=== PATIENT | female | born 1960 | race Caucasian/White ===

== ENCOUNTER → 2023-06-25 10:01 | Outpatient (REF) | payer BC, SELFPAY | LOC: HWWDC 10:01 | PROVIDERS: ATTENDING PHYSICIAN Obstetrics & Gynecology Gynecology; FAMILY PHYSICIAN Family Medicine | DX: Z12.31 Encounter for screening mammogram for malignant neoplasm of breast (principal) | CPT/HCPCS: 77063; 77067 ==

== ENCOUNTER → 2023-12-16 14:11 | Outpatient (REF) | payer BC, SELFPAY | LOC: HWRAD 14:11 | PROVIDERS: ATTENDING PHYSICIAN Student in an Organized Health Care Education/Training Program | DX: R06.02 Shortness of breath (principal) | CPT/HCPCS: 71275; Q9967 ==

== ENCOUNTER → 2024-07-14 09:09 | Outpatient (REF) | payer BC, SELFPAY | LOC: HWWDC 09:09 | PROVIDERS: ATTENDING PHYSICIAN Obstetrics & Gynecology Gynecology; FAMILY PHYSICIAN Family Medicine | DX: Z78.0 Asymptomatic menopausal state (principal); Z12.31 Encounter for screening mammogram for malignant neoplasm of breast | CPT/HCPCS: 77063; 77067; 77080 ==

== ENCOUNTER 2024-12-09 10:06 | Emergency (ER) | payer BC, SELFPAY ==
[2024-12-09 10:11] VITALS: BP 149/97
[2024-12-09 10:36] VITALS: BP 131/107
--- NOTE | 2024-12-09 10:42 | ED.GENMED ---
History of Present Illness
General
Chief Complaint: Chest Pain
Time Seen by Provider: 12/09/24 10:34
History of Present Illness
History of Present Illness:
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 No obvious
modifying factors, denies any pleuritic or exertional component to this pain. States it feels like indigestion but taking antacids has not helped. No history of similar pain. Denies any fever, chills, sweats, shortness of breath, nausea,
vomiting. Non-smoker. Does have a primary family history of coronary disease, mother in her 50s to 60s with HI
Past History
Past History
ED Past Medical History: Other (arthritis)
ED Past Surgical History: None
Patient has exhibited threatening behavior?: No
PSI?: No
Social History
Tobacco: Non-smoker
Alcohol: None
Drug: None
Personal:
Living: with family
Review of Systems
Review of Systems
Allergies reviewed?: Yes
All Other Systems: ROS reviewed and negative except as documented in HPI and ROS
Phy Exam
Physical Exam
Physical Exam:
GEN: Well appearing, NAD, WDWN
HEENT: Oral mucosa moist, no scleral icterus
Cardiac: Regular rate and rhythm, no murmurs
Lung: No respiratory distress, no tachypnea, lungs clear to auscultation bilaterally
MSK: No gross deformity or injuries
Skin: Good color, no pallor or jaundice, no rashes
Neuro: AO x3, moves all extremities freely
Psych: Calm, cooperative
Scores
Heart Score for Chest Pain Patients
STEMI patient?: No
History: Slightly or Non-Suspicious
ECG: Normal
Age: >45 - <65 years
Risk Factors: 1 or 2 Risk Factors
Troponin: </= Normal Limit
Heart Score for Chest Pain Patients: 2
Heart Score Risk: 2.5% MACE over next 6 weeks
Course
Orders/Labs/Results
Orders:
Orders
12/09/24 10:07
Electrocardiogram (*1) Urgent
Reason for Study: Chest Pain
EKG- Treatment ONCE
12/09/24 10:42
CR Chest - 2 Views Urgent
Comment:
Reason For Exam: chest pain
12/09/24 11:00
Complete Blood Count/No Diff Urgent
Comprehensive Metabolic Panel Urgent
Troponin I Urgent
12/09/24 11:46
D-Dimer Urgent
12/09/24 11:00
12/09/24 11:00
Vital Signs
Initial and Last Documented VS:
Initial Vital Signs
Temp Pulse Resp BP Pulse Ox
98.4 F 69 16 149/97 98
12/09/24 10:11 12/09/24 10:11 12/09/24 10:11 12/09/24 10:11 12/09/24 10:11
Last Documented Vital Signs
Temp Pulse Resp BP Pulse Ox
98.4 F 68 19 124/91 96
12/09/24 10:11 12/09/24 13:05 12/09/24 13:05 12/09/24 13:04 12/09/24 12:21
MDM/Problems Addressed
MDM/Problems Addressed:
Workup was reassuring, EKG nonischemic. Troponin and D-dimer negative. Will refer to cardiology through the chest pain hotline for follow-up given her moderate to low risk for CAD
Comment
Comment:
EKG independently interpreted by me shows a normal sinus rhythm with no ST changes concerning for ischemia
*Pulse Oximetry
SaO2: 98
Oxygen Mode of Delivery: Room air
Patient hypoxic: no
*Critical Care Note
Total Time (30-74mins, 75-104mins- exclusive of procedures): Not Applicable
ED Attending Note
-
Portions of this chart may have been created with voice recognition software.� Occasional wrong word or��sound alike� substitutions may have occurred due to the inherent limitations of voice recognition software.
Discharge Plan
Departure
Patient Disposition: Home (Routine Discharge)
Date of Disposition: 12/09/24
Time of Disposition: 12:39
Patient with high blood pressure during this ER visit?: No
Discharge Problem:
Chest pain
Instructions: Chest Pain CBC Follow Up
Prescriptions:
No Action
hydrocodone-acetaminophen 1 TABLET tablet
1 tab PO Q4HPRN PRN (Reason: severe pain) Qty: 20 0RF
Referrals:
Anders Hanks MD [Active, Cardiology]
Jeremiah Salgado DO [Family Provider, Family Practice]
Interventions
Interventions:
*Risk Screen - Suicide Last Done: 12/09/24 10:11
*Neglect/Abuse Screening Last Done: 12/09/24 10:11
*Nursing Disposition Last Done: 12/09/24 13:36
ED- Cardiac Assessment Last Done: 12/09/24 11:38
Discharge Date and Time
Discharge Date/Time: 12/09/24 13:10
Print Language: BOLIVIAN
[2024-12-09 11:08] LABS: Hematocrit 42.7 % (37.0-47.0); Hemoglobin 14.9 g/dL (12.0-16.0); Mean Corp Hgb Conc. 34.9 g/dL (33.0-37.0); Mean Corpuscular Volume 86.1 fL (81.0-99.0); Platelet Count 292 10^3/uL (130-400); Red Cell Dist. Width 13.2 % (11.5-14.5)
[2024-12-09 11:57] LABS: ALT (SGPT) 17 U/L (0-35); AST (SGOT) 21 U/L (14-36); Albumin 4.5 g/dl (3.5-5.0); Alkaline Phosphatase 63 U/L (38-126); Blood Urea Nitrogen 17 mg/dl (7-17); Calcium 10.2 mg/dl (8.4-10.2); Carbon Dioxide 28 mmol/L (22-30); Chloride 106 mmol/L (98-107); Glucose 99 mg/dl (70-99); Potassium 4.3 mmol/L (3.5-5.1); Sodium 137 mmol/L (135-145); Total Protein 7.1 g/dl (6.3-8.2); eGFR > 60.00
[2024-12-09 11:58] LABS: Troponin I < 0.012 ng/ml
[2024-12-09 12:04] VITALS: BP 125/95
[2024-12-09 12:08] LABS: D-Dimer 0.33 ug/mlFEU (0.00-0.50)
[2024-12-09 13:04] VITALS: BP 124/91
== END 2024-12-09 13:10 | disposition home or self-care (01) ==
LOC: EMR 10:06
PROVIDERS: Physician Assistant; EMERGENCY PHYSICIAN Emergency Medicine; FAMILY PHYSICIAN Family Medicine
DX: R07.89 Other chest pain (principal); I25.2 Old myocardial infarction; Z82.49 Family history of ischemic heart disease and other diseases of the circulatory system
CPT/HCPCS: 99283; 71046; 80053; 84484; 85027; 85379; 93005

== ENCOUNTER → 2025-01-14 09:17 | Outpatient (REF) | payer BC, SELFPAY | LOC: HWRCS 09:17 | PROVIDERS: ATTENDING PHYSICIAN Internal Medicine Cardiovascular Disease; FAMILY PHYSICIAN Family Medicine | DX: E78.2 Mixed hyperlipidemia (principal); R07.89 Other chest pain; R94.31 Abnormal electrocardiogram [ECG] [EKG] | CPT/HCPCS: 93306 ==

== ENCOUNTER → 2025-01-20 13:55 | Outpatient (REF) | payer BC, SELFPAY | LOC: RCS 13:55 | PROVIDERS: ATTENDING PHYSICIAN Internal Medicine Cardiovascular Disease; FAMILY PHYSICIAN Family Medicine | DX: E78.2 Mixed hyperlipidemia (principal); R07.89 Other chest pain | CPT/HCPCS: 93017; 93350 ==